=== PATIENT | female | born 1985 | race Two or more races ===

== ENCOUNTER 2024-12-09 17:04 | Inpatient (IN) | payer MEDICAID, OTHER ==
[~2024-12-09] VITALS: Ht 170.2 cm; Wt 104.7 kg
--- NOTE | 2024-12-09 17:41 | ED.PDOC ---
GI ASSESSMENT HPI Comments 39 y.o female presents to the ED for a chief complaint of abdominal pain associated with nausea and vomiting. Patient describes pain as sharp, constant, and rating a 7/10 on the pain scale. Patient reports pain first presented to his epigastric pain at 0100 today, migrated to the RLQ around 0300 and since has stayed there with no further radiation. Patient denies any diarrhea, fever, chills, bloody stool, hematuria, or dysuria. Chief Complaint: Abdominal Pain Time Seen by MD: 17:35 Primary Care Provider: unknown Reviewed Notes: Nurses Notes, Medications, Allergies Allergies: Coded Allergies: NO KNOWN ALLERGIES (Unverified , 12/09/24) Information Source: Patient Mode of Arrival: Wheelchair Timing: Hours Duration: Since onset Quality: Sharp Vomitus: Hard Stool: Normal Severity: Moderate Recent: Possible spoiled food Recent Hx of: None Pain Location: RLQ Modifying Factors: Nothing Associated sign and symptoms: Nausea, Vomiting, Abdominal Pain Past Medical History Surgical History: Cholecystectomy Surgical History (Other): gastric bypass and sinus ENVIRONMENTAL SERVICES TECHNICIAN History: No Pertinent ENVIRONMENTAL SERVICES TECHNICIAN History Family History Family History: Family hx of HTN Social History Smoker: Non-Smoker Alcohol: Denies ETOH Use Drugs: Denies Drug Use Lives In: Home Constitutional: denies: chills, diaphoresis, fatigue, fever, malaise, sweats, weakness, others EENTM: denies: blurred vision, double vision, ear bleeding, ear discharge, ear drainage, ear pain, ear ringing, eye pain, eye redness, hearing loss, mouth pain, mouth swelling, nasal discharge, nose bleeding, nose congestion, nose pain, photophobia, tearing, throat pain, throat swelling, voice changes, others Respiratory: denies: cough, hemoptysis, orthopnea, SOB at rest, shortness of breath, SOB with excertion, stridor, wheezing, others Cardiovascular: denies: chest pain, dizzy spells, diaphoresis, Dyspnea on exertion, edema, irregular heart beat, left arm pain, lightheadedness, palpitations, PND, syncope, others Gastrointestinal: reports: abdominal pain, nausea, vomiting; denies: abdomen distended, blood streaked bowels, constipated, diarrhea, dysphagia, difficulty swallowing, hematemesis, melena, poor appetite, poor fluid intake, rectal bleeding, rectal pain, others Genitourinary: denies: abnormal vagina bleeding, burning, dyspareunia, dysuria, flank pain, frequency, hematuria, incontinence, pain, , vagina discharge, urgency, others Neurological: denies: dizziness, fainting, headache, left sided numbness, left sided weakness, numbness, paresthesia, pre-existing deficit, right sided numbness, right sided weakness, seizure, speech problems, tingling, tremors, weakness, others Musculoskeletal: denies: back pain, gout, joint pain, joint swelling, muscle pain, muscle stiffness, neck pain, others Integumetry: denies: bruises, change in color, change in hair/nails, dryness, laceration, lesions, lumps, rash, wounds, others Allergic/Immunocompromised: denies: Difficulty Healing, Frequent Infections, Hives, Itching, others Hematologic/Lymphatic: denies: anemia, blood clots, easy bleeding, easy bruising, swollen glands, others Endocrine: denies: excessive hunger, excessive sweating, excessive thirst, excessive urination, flushing, intolerance to cold, intolerance to heat, unexplained weight gain, unexplained weight loss, others Psychiatric: denies: anxiety, bipolar disorder, depression, hopeless, panic disorder, schizophrenia, sleepless, suicidal, others All Other Systems: Reviewed and Negative Physical Exam General Appearance: Moderate Distress, Obese HEENT: Normal ENT Inspection, Pharynx Normal, TMs Normal Neck: Full Range of Motion, Non-Tender, Normal, Normal Inspection Respiratory: Chest Non-Tender, Lungs Clear, No Accessory Muscle Use, No Respiratory Distress, Normal Breath Sounds Cardiovascular: No Edema, No JVD, No Murmur, No Gallop, Normal Peripheral Pu lses, Regular Rate/Rhythm Breast Exam: Deferred Gastrointestinal: No Organomegaly, No Pulsatile Mass, Normal Bowel Sounds, RLQ, Soft, Tenderness Genitalia: Deferred Pelvic: Deferred Rectal: Deferred Extremities: No calf tenderness, Normal capillary refill, Normal inspection, Normal range of motion, Non-tender, No pedal edema Musculoskeletal : Apperance: Normal Neurologic: Alert, 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 Was a procedure done?: No GI differential Dx Differential Diagnosis: Appendicitis, Bowel Obstruction, Diverticular disease, Esophagitis, Gastroenteritis X-Ray, Labs, Meds, VS Vital Signs Date Time Temp Pulse Resp B/P (MAP) Pulse Ox O2 Delivery O2 Flow Rate FiO2 12/09/24 17:54 98 15 148/71 12/09/24 17:32 98.3 118 22 129/62 (84) 97 98.3 Lab Test 12/09/24 18:03 Range/Units White Blood Count 16.3 H 4.4-10.8 10^3/uL Red Blood Count 5.31 H 4.0-5.20 10^6/uL Hemoglobin 15.6 12.2-16.2 g/dL Hematocrit 46.4 H 36.0-46.0 % Mean Corpuscular Volume 87.5 80.0-100.0 fL Mean Corpuscular Hemoglobin 29.4 28.0-32.0 pg Mean Corpuscular Hemoglobin Concent 33.6 32.0-36.0 g/dL Red Cell Distribution Width 13.5 11.8-14.3 % Platelet Count 222 140-450 10^3/uL Mean Platelet Volume 7.4 6.9-10.8 fL Neutrophils (%) (Auto) 84.3 H 37.0-80.0 % Lymphocytes (%) (Auto) 6.0 L 10.0-50.0 % Monocytes (%) (Auto) 9.4 0.0-12.0 % Eosinophils (%) (Auto) 0.2 0.0-7.0 % Basophils (%) (Auto) 0.1 0.0-2.0 % Neutrophils # (Auto) 13.8 H 1.6-8.6 10 ^3/uL Lymphocytes # (Auto) 1.0 0.4-5.4 10 ^3/uL Monocytes # (Auto) 1.5 H 0-1.3 10 ^3/uL Eosinophils # (Auto) 0 0-0.8 10 ^3/uL Basophils # (Auto) 0 0-0.2 10 ^3/uL Nucleated Red Blood Cells 0.0 % Sodium Level 132 L 136-145 mmol/L Potassium Level 4.2 3.5-5.1 mmol/L Chloride Level 98 98-107 mmol/L Carbon Dioxide Level 26 20-31 mmol/L Anion Gap 8 5-15 Blood Urea Nitrogen < 5 L 9-23 mg/dL Creatinine 0.70 0.550-1.02 mg/dL Glomerular Filtration Rate Calc 111 >90 mL/min BUN/Creatinine Ratio 7.1 L 10.0-20.0 Serum Glucose 131 H 74-106 mg/dL Calcium Level 9.9 8.7-10.4 mg/dL Total Bilirubin 0.6 0.2-1.0 mg/dL Aspartate Amino Transferase (AST) 18 13-40 U/L Alanine Aminotransferase (ALT) 45 H 7-40 U/L Alkaline Phosphatase 89 46-116 U/L Total Protein 7.8 5.7-8.2 g/dL Albumin 4.9 H 3.2-4.8 g/dL Lipase 22 12-53 U/L Current Medications Medications (Trade) Dose Ordered Sig/Sara Route Start Time Stop Time Status Last Admin Ondansetron HCl (Zofran) 4 mg ONCE ONCE IV 12/09/24 17:45 12/09/24 17:46 DC 12/09/24 17:54 Morphine Sulfate 4 mg ONCE ONCE IV 12/09/24 17:45 12/09/24 17:46 DC 12/09/24 17:54 Sodium Chloride 500 ml @ 500 mls/hr Q1H ONCE IVB 12/09/24 17:45 12/09/24 18:44 DC 12/09/24 17:55 EXAM: CT Abdomen and Pelvis Without Intravenous Contrast. IMPRESSION: 1. Mucosal thickening in the appendix with surrounding inflammation. Appendix measures 0.9 cm in diameter. Appendicoliths measuring up to 7 mm. Findings are consistent with acute appendicitis. No rupture. 2. Hepatomegaly with fatty infiltration. The CBC does show an elevated white blood cell count of 16.3 The rest of the CBC is within normal limits The chemistry panel is within normal limits. At this time, the patient was given morphine 4 mg IV push for the pain The patient was given Zofran 4 mg IV push for the nausea Because of the findings, the patient was started on Zosyn for the appendicitis The patient was being admitted at this time We did speak with the patient about the results and the patient was being admitted Images Reviewed?: Images reviewed and evaluated by me Time of 1ST Reevaluation: 17:41 Reevaluation 1ST: Unchanged Patient Education/Counseling: Diagnosis, Treatment, Prognosis Family Education/Counseling: No Family Present Departure 1 Departure Time of Disposition: 19:38 Impression: Primary Impression: Intractable abdominal pain Additional Impression: Acute appendicitis Qualified Codes: K35.30 - Acute appendicitis with localized peritonitis, without perforation or gangrene Disposition: ADMITTED INPATIENT Admit to: Med Surg Condition: Fair Critical Care Note Critical Care Time?: No Stability Stability form required: Yes Unstable for transfer: ED Physician Assesment (Clinical assesment) I personally scribed for ABELINO LENTZ MD ([email or web address]) on 12/09/24 at 17:41. Electronically submitted by Sharon Regan ([facility]). I personally scribed for ABELINO LENTZ MD ([email or web address]) on 12/09/24 at 19:28. Electronically submitted by Sharon Regan ([facility]). ABELINO LENTZ MD Dec 09, 2024 17:41
[2024-12-09] MEDS: ONDANSETRON HCL 4 MG/2 ML VIAL IV ONE ×2 (17:54→22:15)
[2024-12-09] MEDS: MORPHINE SULFATE 4 MG/ML SYR/VIAL IV ONE (17:54)
[2024-12-09] MEDS: SODIUM CHLORIDE 0.9% 500 ML IVB ONE (17:55)
[2024-12-09 18:20] LABS: Basophils # (auto) 0 10 ^3/uL (0-0.2); Basophils % (auto) 0.1 % (0.0-2.0); Eosinophils # (auto) 0 10 ^3/uL (0-0.8); Eosinophils % (auto) 0.2 % (0.0-7.0); Hematocrit 46.4 % (36.0-46.0); Hemoglobin 15.6 g/dL (12.2-16.2); Mean Corpuscular Hemoglobin 29.4 pg (28.0-32.0); Mean Corpuscular Hgb Conc. 33.6 g/dL (32.0-36.0); Mean Corpuscular Volume 87.5 fL (80.0-100.0); Monocytes # (auto) 1.5 10 ^3/uL (0-1.3); Monocytes % (auto) 9.4 % (0.0-12.0); Neutrophils # (auto) 13.8 10 ^3/uL (1.6-8.6); Neutrophils % (auto) 84.3 % (37.0-80.0); Platelet Count (auto) 222 10^3/uL (140-450); Red Blood Cells 5.31 10^6/uL (4.0-5.20); Red Cell Distribution Width 13.5 % (11.8-14.3); White Blood Cell 16.3 10^3/uL (4.4-10.8)
[2024-12-09 18:39] LABS: Alkaline Phosphatase 89 U/L (46-116); Anion Gap 8 (5-15); Aspartate Aminotransferase 18 U/L (13-40); Bilirubin, Total 0.6 mg/dL (0.2-1.0); Calcium 9.9 mg/dL (8.7-10.4); Carbon Dioxide 26 mmol/L (20-31); Chloride 98 mmol/L (98-107); Potassium 4.2 mmol/L (3.5-5.1); Total Protein 7.8 g/dL (5.7-8.2)
[2024-12-09 18:45] LABS: Alanine Aminotransferase 45 U/L (7-40); Albumin 4.9 g/dL (3.2-4.8); BUN/Creatinine Ratio 7.1 (10.0-20.0); Blood Urea Nitrogen < 5 mg/dL (9-23); Glucose 131 mg/dL (74-106); Sodium 132 mmol/L (136-145)
[2024-12-09 19:05] LABS: Lipase 22 U/L (12-53)
--- NOTE | 2024-12-09 19:17 | DVH ---
EXAM: CT Abdomen and Pelvis Without Intravenous Contrast CLINICAL INDICATION: pain TECHNIQUE: Axial computed tomography images of the abdomen and pelvis without intravenous contrast. This CT exam was performed using one or more of the following dose reduction techniques: automated exposure control, adjustment of the mA and/or kV according to patient size, and/or use of iterative r econstruction technique. CONTRAST: RADIATION DOSE: CTDIvol = 22.28 mGy, DLP = 1282.17 mGy-cm COMPARISON: None FINDINGS: LUNG BASES: A few pulmonary nodule of the right lung base measuring up to 3 mm. No consolidation. ABDOMEN: LIVER: Hepatomegaly with fatty infiltration. GALLBLADDER AND BILE DUCTS: Gallbladder is surgically absent. No ductal dilation. PANCREAS: Unremarkable. No ductal dilation. SPLEEN: Unremarkable. No splenomegaly. ADRENALS: Unremarkable. No mass. KIDNEYS AND URETERS: Unremarkable. No obstructing stones. No hydronephrosis. STOMACH AND BOWEL: Status post colon resection and reanastomosis in the left upper abdominal quadra nt. No mucosal thickening. No bowel obstruction. PELVIS: APPENDIX: Mucosal thickening in the appendix with surrounding inflammation. Appendix measures 0.9 cm in diameter. BLADDER: Unremarkable. No stones. REPRODUCTIVE: Unremarkable as visualized. ABDOMEN and PELVIS: INTRAPERITONEAL SPACE: Unremarkable. No free air. No significant fluid collection. BONES/JOINTS: No acute fracture. No dislocation. SOFT TISSUES: Unremarkable. VASCULATURE: Unremarkable. No abdominal aortic aneurysm. LYMPH NODES: Unremarkable. No enlarged lymph nodes. OTHER FINDINGS: . . . IMPRESSION: 1. Mucosal thickening in the appendix with surrounding inflammation. Appendix measures 0.9 cm in di ameter. Appendicoliths measuring up to 7 mm. Findings are consistent with acute appendicitis. No rup ture. 2. Hepatomegaly with fatty infiltration. Findings were discussed with Dr. Tripathi by phone on 12/09/2024 at 7:13 p.m.
[2024-12-09] MEDS: PIPERACILLIN-TAZOB 3.375GM 100 ML IV ONE (20:05)
--- NOTE | 2024-12-09 20:16 | DVHINCON2 ---
Consultation - Surgical Date Seen: Dec 09, 2024 Referring Physician Referring Physician usha Reason for Consultation Appendicitis History of Present Illness History of Present Illness 39 y.o female presents to the ED for a chief complaint of abdominal pain assoc iated with nausea and vomiting. Patient describes pain as sharp, constant, and rating a 7/10 on the pain scale. Patient reports pain first presented to his epigastric pain at 0100 today, migrated to the [facility] around 0300 and since has stayed there with no further radiation. Patient denies any diarrhea, fever, chills, bloody stool, hematuria, or dysuria. Past Medical/Surgical History Past Medical/Surgical History lap maik, Lap. gastric bypass Family and Social History Family and Social History non smoker and drinker Allergies and medications Allergies: Coded Allergies: NO KNOWN ALLERGIES (Unverified , 12/09/24) Review of systems Review of Systems: HEENT:Normal, CVS:Normal, RESPIRATORY:Normal, GI:Normal, :Normal, MSK:Normal, NEURO:Normal Examination Vital signs Vital Signs Date Time Temp Pulse Resp B/P (MAP) Pulse Ox O2 Delivery O2 Flow Rate FiO2 12/09/24 17:54 98 15 148/71 12/09/24 17:32 98.3 97 98.3 Laboratory Labs Test 12/09/24 18:03 Range/Units White Blood Count 16.3 H 4.4-10.8 10^3/uL Red Blood Count 5.31 H 4.0-5.20 10^6/uL Hemoglobin 15.6 12.2-16.2 g/dL Hematocrit 46.4 H 36.0-46.0 % Mean Corpuscular Volume 87.5 80.0-100.0 fL Mean Corpuscular Hemoglobin 29.4 28.0-32.0 pg Mean Corpuscular Hemoglobin Concent 33.6 32.0-36.0 g/dL Red Cell Distribution Width 13.5 11.8-14.3 % Platelet Count 222 140-450 10^3/uL Mean Platelet Volume 7.4 6.9-10.8 fL Neutrophils (%) (Auto) 84.3 H 37.0-80.0 % Lymphocytes (%) (Auto) 6.0 L 10.0-50.0 % Monocytes (%) (Auto) 9.4 0.0-12.0 % Eosinophils (%) (Auto) 0.2 0.0-7.0 % Basophils (%) (Auto) 0.1 0.0-2.0 % Neutrophils # (Auto) 13.8 H 1.6-8.6 10 ^3/uL Lymphocytes # (Auto) 1.0 0.4-5.4 10 ^3/uL Monocytes # (Auto) 1.5 H 0-1.3 10 ^3/uL Eosinophils # (Auto) 0 0-0.8 10 ^3/uL Basophils # (Auto) 0 0-0.2 10 ^3/uL Nucleated Red Blood Cells 0.0 % Sodium Level 132 L 136-145 mmol/L Potassium Level 4.2 3.5-5.1 mmol/L Chloride Level 98 98-107 mmol/L Carbon Dioxide Level 26 20-31 mmol/L Anion Gap 8 5-15 Blood Urea Nitrogen < 5 L 9-23 mg/dL Creatinine 0.70 0.550-1.02 mg/dL Glomerular Filtration Rate Calc 111 >90 mL/min BUN/Creatinine Ratio 7.1 L 10.0-20.0 Serum Glucose 131 H 74-106 mg/dL Calcium Level 9.9 8.7-10.4 mg/dL Total Bilirubin 0.6 0.2-1.0 mg/dL Aspartate Amino Transferase (AST) 18 13-40 U/L Alanine Aminotransferase (ALT) 45 H 7-40 U/L Alkaline Phosphatase 89 46-116 U/L Total Protein 7.8 5.7-8.2 g/dL Albumin 4.9 H 3.2-4.8 g/dL Lipase 22 12-53 U/L EXAM: CT Abdomen and Pelvis Without Intravenous Contrast CLINICAL INDICATION: pain TECHNIQUE: Axial computed tomography images of the abdomen and pelvis without intravenous contrast. This CT exam was performed using one or more of the following dose reduction techniques: automated exposure control, adjustment of the mA and/or kV according to patient size, and/or use of iterative reconstruction technique. CONTRAST: RADIATION DOSE: CTDIvol = 22.28 mGy, DLP = 1282.17 mGy-cm COMPARISON: None FINDINGS: LUNG BASES: A few pulmonary nodule of the right lung base measuring up to 3 mm. No consolidation. ABDOMEN: LIVER: Hepatomegaly with fatty infiltration. GALLBLADDER AND BILE DUCTS: Gallbladder is surgically absent. No ductal dilation. PANCREAS: Unremarkable. No ductal dilation. SPLEEN: Unremarkable. No splenomegaly. ADRENALS: Unremarkable. No mass. KIDNEYS AND URETERS: Unremarkable. No obstructing stones. No hydronephrosis. STOMACH AND BOWEL: Status post colon resection and reanastomosis in the left upper abdominal quadrant. No mucosal thickening. No bowel obstruction. PELVIS: APPENDIX: Mucosal thickening in the appendix with surrounding inflammation. Appendix measures 0.9 cm in diameter. BLADDER: Unremarkable. No stones. REPRODUCTIVE: Unremarkable as visualized. ABDOMEN and PELVIS: INTRAPERITONEAL SPACE: Unremarkable. No free air. No significant fluid collection. BONES/JOINTS: No acute fracture. No dislocation. SOFT TISSUES: Unremarkable. VASCULATURE: Unremarkable. No abdominal aortic aneurysm. LYMPH NODES: Unremarkable. No enlarged lymph nodes. OTHER FINDINGS: . . . IMPRESSION: 1. Mucosal thickening in the appendix with surrounding inflammation. Appendix measures 0.9 cm in diameter. Appendicoliths measuring up to 7 mm. Findings are consistent with acute appendicitis. No rupture. 2. Hepatomegaly with fatty infiltration. Examination: GENERAL:Normal, HEENT:Normal, NECK:Normal, LUNGS:Normal, CVS:Normal, ABDOMEN:Abnormal (riight lower quadrant tendernes and guarding), MSK:Normal, SKIN:Normal, NEURO:Normal Problem List/Assessment/Plan Problems: (1) Acute appendicitis Assessment and Plan Acute appendicitis npo iv antibiotics ivf consent for lap appy possible open 12.09.24 Plan discussed with Plan discussed with: Patient, Spouse Visit Coding Surgery Date of Service if different f: Dec 09, 2024 Billing Provider: EMRE STARKS Jr., MD Surgery Visit Codes: 01025 - INP CONSULT <80 MIN EMRE STARKS Jr., MD Dec 09, 2024 20:16
[2024-12-09 20:37] VITALS: PULSE 65; RESP 13; O2SAT 97
[2024-12-09 20:54] LABS: Urine Bacteria FEW /hpf (None Seen); Urine Blood Negative /uL (Negative); Urine Clarity Clear (Clear); Urine Color Light-Yellow (Yellow); Urine Protein, UAD Negative (Negative); Urine Specific Gravity 1.008 (1.001-1.035); Urine Squamous Epithelial Cell FEW /hpf (<5); Urine Urobilinogen Normal (Negative); Urine WBC < 1 /HPF (0-5)
[2024-12-09] MEDS: MORPHINE SULFATE INJ 2 MG/ml SYRG IV ONE (22:15)
[2024-12-09] MEDS ORDERED: diphenhdrAMINE HCL 50 MG/1 ML VL IV PRN (23:15)
[2024-12-09] MEDS ORDERED: ONDANSETRON HCL 4 MG/2 ML VIAL IV PRN (23:15)
[2024-12-09] MEDS ORDERED: hydrALAZINE HCL 20 MG/ML VL IV PRN (23:15)
--- NOTE | 2024-12-09 23:23 | DVHHP2 ---
Admitting Diagnosis: Admission Date: 12/09/24 Abdominal pain History of Present Illness Patient is a 39-year-old female who presents to the ED for abdominal pain associated with vomiting and nausea. Patient states that pain first present as epigastric pain at 0100 today, but migrated to the right lower quadrant around 0300 and since has stayed there is no other radiation. Patient states pain is sharp, constant and getting a 7 out of 10 the pain scale. Patient denies any dysuria, hematuria, bloody stool, chills, fever, or diarrhea. While in the emergency department the patient was evaluated by the provider, As per provider: Labs, vital signs, and imagining monitored. Patient will be admitted for further evaluation and treatment. I discussed admission with the patient/family and is in agreement to treatment plan Allergies: Coded Allergies: NO KNOWN ALLERGIES (Unverified , 12/09/24) Home Meds Reported Medications Pregabalin (Lyrica) 50 Mg Cap, 50 MG PO QAM, CAP 12/10/24 Oxycodone W/ Acetaminophen (Apap/Oxycodone) 1 Tab Tab, 10-325 MG PO QID for pain 12/10/24 Cyclobenzaprine HCl (Cyclobenzaprine Hydrochlo) 10 Mg Tab, 1 TAB PO TID PRN for pain 12/10/24 Pregabalin (Pregabalin) 150 Mg Cap, 1 CAP PO HS 12/10/24 Current Medications Current Medications Medications (Trade) Dose Ordered Sig/Sara Route PRN Reason Start Time Stop Time Status Last Admin Sodium Chloride 1,000 ml @ 120 mls/hr Q8H20M IV 12/09/24 23:15 Hold 12/10/24 00:05 Ondansetron HCl (Zofran) 4 mg Q4HP PRN IV NAUSEA / VOMITING 12/09/24 23:15 Enoxaparin Sodium (Lovenox) 40 mg DAILY SC 12/10/24 10:00 12/10/24 10:01 Morphine Sulfate 4 mg Q3HP PRN IV SEVERE PAIN (7-10 PAIN SCALE) 12/09/24 23:15 12/10/24 20:38 Diphenhydramine HCl (Benadryl Injection) 25 mg Q6HP PRN IV FOR ITCHING 12/09/24 23:15 Pantoprazole Sodium (Protonix) 40 mg DAILY IV 12/10/24 10:00 12/10/24 10:00 Hydralazine HCl (Apresoline Injection) 10 mg Q6HP PRN IV SBP>150 12/09/24 23:15 Piperacillin Sod/ Tazobactam Sod 100 ml @ 100 mls/hr Q8HR IV 12/10/24 06:00 12/10/24 14:44 DC 12/10/24 05:22 Hydromorphone HCl (Dilaudid Injection) 0.5 mg Q10M PRN IV SEVERE PAIN (7-10 PAIN SCALE) 12/10/24 08:45 12/10/24 09:26 DC Hydrocortisone Sodium Succinate (Solu-CORTEF INJECTION) 100 mg Q8HR IV 12/10/24 16:00 12/10/24 17:09 Potassium Chloride/Dextrose/ Sod Cl 1,000 ml @ 120 mls/hr Q8H20M IV 12/10/24 08:45 12/10/24 10:01 Metronidazole 100 ml @ 100 mls/hr Q8HR IV 12/10/24 14:00 12/10/24 14:10 Piperacillin Sod/ Tazobactam Sod 100 ml @ 25 mls/hr Q8HR IV 12/10/24 14:45 12/10/24 20:19 DC 12/10/24 15:54 Oxycodone/ Acetaminophen (Percocet 5/ 325MG Tablet) 1 tab QID PRN PO MODERATE PAIN (4-6 PAIN SCALE) 12/10/24 20:00 12/10/24 16:09 Oxycodone HCl 5 mg QID PRN PO MODERATE PAIN (4-6 PAIN SCALE) 12/10/24 20:00 12/10/24 16:08 Cyclobenzaprine HCl (Flexeril Tablet) 10 mg TID PO 12/10/24 22:00 Piperacillin Sod/ Tazobactam Sod 100 ml @ 25 mls/hr Q6H IV 12/10/24 22:00 Review of Systems Constitutional: denies chills, denies fever, denies malaise Eyes: denies eye pain, denies vision change ENT: denies ear pain, denies headache, denies nasal congestion, denies painful swallowing, denies voice change Cardiovascular: denies chest pain, denies edema, denies orthopnea, denies palpi tations, denies paroxysmal nocturnal dyspnea Respiratory: denies cough, denies shortness of breath Gastrointestinal: denies constipation, denies diarrhea, denies nausea, denies vomiting Genitourinary: denies dysuria, denies frequent urination, denies urethral discharge Musculoskeletal: denies back pain, denies joint pain, denies muscle pain Skin: denies bruising, denies itching, denies rash Neurological: denies focal weakness, denies headache, denies sensory changes Psychiatric: denies anxiety, denies depression Endocrine: denies polydipsia, denies polyuria Hematologic/Lymphatic: denies easy bleeding, denies easy bruising, denies enlarged lymph nodes Allergic/Immunologic: denies allergy, denies hives Vital Signs Vital Signs Date Time Temp Pulse Resp B/P (MAP) Pulse Ox O2 Delivery O2 Flow Rate FiO2 12/10/24 20:38 111 20 114/68 12/10/24 13:00 97.2 93 97.2 12/10/24 09:40 Room Air* 0 21 Physical Exam General Appearance: alert, no distress HEENT: EOMI, PERRLA, normal external inspect of ears, no icterus, no nasal drainage Neck: no carotid bruit, no jugular venous distention (JVD), no lymphadenopathy Chest: normal thorax Respiratory: clear to auscultation, normal air movement Cardiovascular: regular rate and rhythm, no diastolic murmur, no jugular venous distention (JVD), no rub, no systolic murmur Abdominal: soft, no hepatomegaly, no mass, no splenomegaly, no tenderness Genitourinary: grossly normal external Musculoskeletal: no joint tenderness, no swelling Extremities: normal pulses, no calf tenderness, no clubbing, no cyanosis, no edema Skin: no bruising, no jaundice, no rash Neurological: alert, No focal deficit Results Labs Test 12/10/24 06:09 12/09/24 18:03 12/09/24 17:25 Range/Units White Blood Count 13.3 H 4.4-10.8 10^3/uL Red Blood Count 4.95 4.0-5.20 10^6/uL Hemoglobin 14.5 12.2-16.2 g/dL Hematocrit 43.8 36.0-46.0 % Mean Corpuscular Volume 88.5 80.0-100.0 fL Mean Corpuscular Hemoglobin 29.3 28.0-32.0 pg Mean Corpuscular Hemoglobin Concent 33.2 32.0-36.0 g/dL Red Cell Distribution Width 14.4 H 11.8-14.3 % Platelet Count 176 140-450 10^3/uL Mean Platelet Volume 7.5 6.9-10.8 fL Neutrophils (%) (Auto) 86.2 H 37.0-80.0 % Lymphocytes (%) (Auto) 5.7 L 10.0-50.0 % Monocytes (%) (Auto) 7.6 0.0-12.0 % Eosinophils (%) (Auto) 0.4 0.0-7.0 % Basophils (%) (Auto) 0.1 0.0-2.0 % Neutrophils # (Auto) 11.4 H 1.6-8.6 10 ^3/uL Lymphocytes # (Auto) 0.8 0.4-5.4 10 ^3/uL Monocytes # (Auto) 1.0 0-1.3 10 ^3/uL Eosinophils # (Auto) 0.1 0-0.8 10 ^3/uL Basophils # (Auto) 0 0-0.2 10 ^3/uL Nucleated Red Blood Cells 0.0 % Sodium Level 137 # 136-145 mmol/L Potassium Level 3.7 3.5-5.1 mmol/L Chloride Level 108 #H 98-107 mmol/L Carbon Dioxide Level 24 20-31 mmol/L Anion Gap 5 5-15 Blood Urea Nitrogen < 5 L 9-23 mg/dL Creatinine 0.68 0.550-1.02 mg/dL Glomerular Filtration Rate Calc 112 >90 mL/min BUN/Creatinine Ratio 7.4 L 10.0-20.0 Serum Glucose 154 H 74-106 mg/dL Hemoglobin A1c 5.8 H <5.7 % A1C Calcium Level 9.3 8.7-10.4 mg/dL Total Bilirubin 0.5 0.2-1.0 mg/dL Aspartate Amino Transferase (AST) 12 L 13-40 U/L Alanine Aminotransferase (ALT) 35 7-40 U/L Alkaline Phosphatase 79 46-116 U/L Total Protein 6.7 5.7-8.2 g/dL Albumin 4.2 3.2-4.8 g/dL Lipase 22 12-53 U/L Urine Color Light-yellow Yellow Urine Clarity Clear Clear Urine pH 6.0 5.0-9.0 Urine Specific [place] 1.008 1.001-1.035 Urine Protein Negative Negative Urine Ketones 2+ H Negative Urine Blood Negative Negative /uL Urine Nitrite Negative Negative Urine Bilirubin Negative Negative Urine Urobilinogen Normal Negative mg/dL Urine Leukocyte Esterase Negative Negative /uL Urine RBC 1 0 - 4 /hpf Urine Microscopic WBC < 1 0-5 /HPF Urine Squamous Epithelial Cells Few <5 /hpf Urine Bacteria Few H None Seen /hpf Urine Glucose Normal Normal mg/dL Urine Test Negative Negative Plan 1. Sepsis Monitor, IV fluids, IV antibiotics 2. Acute gangrenous appendicitis Monitor, surgical consult 3. Morbid obesity Monitor 4. Hyponatremia Monitor, daily labs Plan discussed with: Patient, Other KEANU FAJARDO NP Dec 09, 2024 23:23
[2024-12-10] VITALS (7 sets, daily range): BP systolic 93–114; BP diastolic 48–68; PULSE 100–113; RESP 14–20; TEMP 97.2–100.1; O2SAT 92–98
[2024-12-10] MEDS: SODIUM CHLORIDE 0.9% 1,000 ML IV SCH (00:05)
[2024-12-10] MEDS: MORPHINE SULFATE INJ 2 MG/ml SYRG IV PRN (02:20)
[2024-12-10] MEDS ORDERED: OXYC325T14 PO (03:31)
[2024-12-10] MEDS ORDERED: PREG150C63 PO (03:31)
[2024-12-10] MEDS ORDERED: CYCL-611 PO (03:31)
[2024-12-10] MEDS: PIPERACILLIN-TAZOB 3.375GM 100 ML IV SCH ×3 (05:22→22:00)
[2024-12-10 06:45] LABS: Basophils # (auto) 0 10 ^3/uL (0-0.2); Basophils % (auto) 0.1 % (0.0-2.0); Eosinophils # (auto) 0.1 10 ^3/uL (0-0.8); Eosinophils % (auto) 0.4 % (0.0-7.0); Hematocrit 43.8 % (36.0-46.0); Hemoglobin 14.5 g/dL (12.2-16.2); Lymphocytes # (auto) 0.8 10 ^3/uL (0.4-5.4); Lymphocytes % (auto) 5.7 % (10.0-50.0); Mean Corpuscular Hemoglobin 29.3 pg (28.0-32.0); Mean Corpuscular Hgb Conc. 33.2 g/dL (32.0-36.0); Mean Corpuscular Volume 88.5 fL (80.0-100.0); Monocytes % (auto) 7.6 % (0.0-12.0); Neutrophils # (auto) 11.4 10 ^3/uL (1.6-8.6); Neutrophils % (auto) 86.2 % (37.0-80.0); Platelet Count (auto) 176 10^3/uL (140-450); Red Blood Cells 4.95 10^6/uL (4.0-5.20); Red Cell Distribution Width 14.4 % (11.8-14.3); White Blood Cell 13.3 10^3/uL (4.4-10.8)
[2024-12-10 07:10] LABS: Alanine Aminotransferase 35 U/L (7-40); Albumin 4.2 g/dL (3.2-4.8); Alkaline Phosphatase 79 U/L (46-116); Anion Gap 5 (5-15); Bilirubin, Total 0.5 mg/dL (0.2-1.0); Calcium 9.3 mg/dL (8.7-10.4); Carbon Dioxide 24 mmol/L (20-31); Potassium 3.7 mmol/L (3.5-5.1); Sodium 137 mmol/L (136-145); Total Protein 6.7 g/dL (5.7-8.2)
[2024-12-10 07:13] LABS: Aspartate Aminotransferase 12 U/L (13-40); BUN/Creatinine Ratio 7.4 (10.0-20.0); Blood Urea Nitrogen < 5 mg/dL (9-23); Chloride 108 mmol/L (98-107); Glucose 154 mg/dL (74-106)
[2024-12-10] MEDS ORDERED: KETAMINE 50mg/ML 1ml syringe ONE (07:40)
[2024-12-10] MEDS ORDERED: fentaNYL CITRATE 100 MCG/2 ML VL ONE (07:41)
[2024-12-10] MEDS ORDERED: ONDANSETRON HCL 4 MG/2 ML VIAL ONE (07:41)
[2024-12-10] MEDS ORDERED: KETOROLAC TROMETH 30 MG/ML 1ML VIAL ONE (07:41)
[2024-12-10] MEDS ORDERED: PROPOFOL 10 MG/ML 20 ML IV ONE (07:41)
[2024-12-10] MEDS ORDERED: LIDOCAINE 2% (LOCAL ANESTH.) PF 5ml SDV ONE (07:41)
[2024-12-10] MEDS ORDERED: HYDROmorphone HCL 2 MG/ML VL/or syr ONE ×2 (07:41→08:20)
[2024-12-10] MEDS ORDERED: DexAMETHasone SOD PHOS 10MG/1ML VIAL INJ ONE (07:41)
[2024-12-10] MEDS ORDERED: GLYCOPYRROLATE 0.2 MG/ML 1ML VIAL ONE (07:41)
[2024-12-10] MEDS ORDERED: MIDAZOLAM HCL 2MG/2ML 2ml VIAL (1mg/ml) ONE (07:41)
[2024-12-10] MEDS ORDERED: ACETAMINOPHEN IV 100 ML IV ONE (08:00)
[2024-12-10] MEDS ORDERED: ePHEDrine SULFATE 50 MG/ML AMP ONE (08:09)
[2024-12-10] MEDS ORDERED: POVIDONE IODINE 10 % TOPICAL OINT 30GM TOP ONE (08:14)
[2024-12-10] MEDS: BUPIVACAINE HCL 0.25% P/F 10 ML VIAL ONE (08:15)
[2024-12-10] MEDS: LIDOCAINE W/ EPINEPHRINE 1% 20ML VIAL ONE (08:15)
[2024-12-10] MEDS ORDERED: SUGAMMADEX 200mg/2ml Vial (100MG/ML) IV ONE (08:16)
[2024-12-10] MEDS ORDERED: HYDROmorphone HCL 2 MG/ML VL/or syr IV PRN (08:45)
--- NOTE | 2024-12-10 09:11 | DVHOP ---
DATE OF SURGERY: 12/10/2024 PREOPERATIVE DIAGNOSIS: Appendicitis. POSTOPERATIVE DIAGNOSIS: Gangrenous appendicitis. SURGEON: Akhil Gonzalez MD SENIOR WEB DEVELOPER: Dr. Triplett. PROCEDURES: * Laparoscopy. * Laparoscopic appendectomy. DESCRIPTION OF PROCEDURE: Under general endotracheal anesthesia with the patient's skin prepped and draped, a supraumbilical incision was made and Veress needle inserted by the hanging drop technique in order to establish pneumoperitoneum to 15 mmHg pressure by insufflation with carbon dioxide. With the abdomen fully distended, the needle was removed and replaced with a 5 mm trocar port through which a 0-degree viewing laparoscope was inserted and under direct vision, an additional 5 mm port and a 10 mm port were inserted through the subxiphoid skin in the midline and the infraumbilical skin in the midline respectively. Instrumentation was introduced. Laparoscopy was performed revealing no obvious unexpected pathology. Appendix was affected by gangrenous appendicitis. It was adherent to the posterolateral peritoneum and surrounded by surrounding structures adherent in a form of a phlegmon. The phlegmon was divided bluntly and sharply and the appendix was then grasped with a Rydal forcep. Small amount of fluid emanated from the base of the appendix. Cultures were submitted. The appendix was mobilized fully to its confluence with the cecum. At its base with the confluence with the cecum, it was crossclamped and divided with an Endo JADE stapler equipped with vascular abdulaziz. The appendix and mesoappendix were then removed from the peritoneal cavity by placement in a specimen extraction bag which was withdrawn through the subumbilical 10 mm port site. The right lower quadrant was then profusely irrigated and irrigant was aspirated. Hemostasis was meticulously inspected and found to be complete. At the termination of procedure, there was no evidence of bleeding from either the appendicectomy site or from the port sites. Instrumentation was withdrawn. Pneumoperitoneum was evacuated. Wounds approximated. Skin approximated using metallic skin abdulaziz. The patient remained hemodynamically stable throughout the procedure, left the operating room following an accurate needle and sponge count. Her was thoroughly informed in the waiting room. MD SHEYLA Fleming/HÉCTOR TID: [id number] RECEIPT: [id number]
[2024-12-10] MEDS ORDERED: PREG50CA PO (09:38)
[2024-12-10] MEDS: PANTOPRAZOLE 40 MG/10 ML VIAL INJ IV SCH (10:00)
[2024-12-10] MEDS: ENOXAPARIN SOD 40 MG/0.4 ML SYRINGE SC SCH (10:01)
[2024-12-10] MEDS: D5W/SOD CHL 0.45%/KCL 20MEQ 1,000 ML IV SCH (10:01)
[2024-12-10] MEDS: metroNIDAZOLE 500MG/100ML 100 ML IV SCH (14:10)
[2024-12-10] MEDS: ONDANSETRON HCL 4 MG/2 ML VIAL IV ONE (14:30)
[2024-12-10] MEDS: oxyCODONE HCL 5MG TAB PO PRN (16:08)
[2024-12-10] MEDS: OXYCODONE W/ ACETAMINOPHEN 5/325MG TABLET PO PRN (16:09)
[2024-12-10] MEDS: HYDROCORTISONE SOD SUCC 100 MG/2ML INJ VIAL IV SCH (17:09)
--- NOTE | 2024-12-10 20:20 | MEDREC ---
[facility] Intervention Section I [facility] Intervention: Duplication of therapy (PLEASE CONSIDER D/C FLAGYL SINCE BOTH ZOSYN AND FLAGYL COVER FOR ANAEROBE ORGANISMS (DUPLICATE) ) MARK LEE PHARMACIST Dec 10, 2024 20:20
--- NOTE | 2024-12-10 20:52 | DVHPN2 ---
Progress Note - Dictate Date Seen: Dec 10, 2024 Medical Necessity Reason Pt with a Central, PICC or Fol: No vital signs Vital Sign Date Time Temp Pulse Resp B/P (MAP) Pulse Ox O2 Delivery O2 Flow Rate FiO2 12/10/24 20:38 111 20 114/68 12/10/24 13:00 97.2 93 97.2 12/10/24 09:40 Room Air* 0 21 Total Intake and Output 12/09/24 12/09/24 12/10/24 15:00 23:00 07:00 Intake Total 0 ml Balance 0 ml medications Current Medications Medications Dose Ordered Sig/Sara Route Start Time Stop Time Status Last Admin Dose Admin Sodium Chloride 1,000 ml @ 120 mls/hr Q8H20M IV 12/09/24 23:15 Hold 12/10/24 00:05 Ondansetron HCl 4 mg Q4HP PRN IV 12/09/24 23:15 Enoxaparin Sodium 40 mg DAILY SC 12/10/24 10:00 12/10/24 10:01 Morphine Sulfate 4 mg Q3HP PRN IV 12/09/24 23:15 12/10/24 20:38 Diphenhydramine HCl 25 mg Q6HP PRN IV 12/09/24 23:15 Pantoprazole Sodium 40 mg DAILY IV 12/10/24 10:00 12/10/24 10:00 Hydralazine HCl 10 mg Q6HP PRN IV 12/09/24 23:15 Hydrocortisone Sodium Succinate 100 mg Q8HR IV 12/10/24 16:00 12/10/24 17:09 Potassium Chloride/Dextrose/ Sod Cl 1,000 ml @ 120 mls/hr Q8H20M IV 12/10/24 08:45 12/10/24 10:01 Metronidazole 100 ml @ 100 mls/hr Q8HR IV 12/10/24 14:00 12/10/24 14:10 Oxycodone/ Acetaminophen 1 tab QID PRN PO 12/10/24 20:00 12/10/24 16:09 Oxycodone HCl 5 mg QID PRN PO 12/10/24 20:00 12/10/24 16:08 Cyclobenzaprine HCl 10 mg TID PO 12/10/24 22:00 Piperacillin Sod/ Tazobactam Sod 100 ml @ 25 mls/hr Q6H IV 12/10/24 22:00 objective General Appearance: alert, no distress HEENT: EOMI, PERRLA, normal external inspect of ears, no icterus, no nasal drainage Neck: no carotid bruit, no jugular venous distention (JVD), no lymphadenopathy Chest: normal thorax Respiratory: clear to auscultation, normal air movement Cardiovascular: regular rate and rhythm, no diastolic murmur, no jugular venous distention (JVD), no rub, no systolic murmur Abdominal: soft, no hepatomegaly, no mass, no splenomegaly, no tenderness Genitourinary: grossly normal external Musculoskeletal: no joint tenderness, no swelling Extremities: normal pulses, no calf tenderness, no clubbing, no cyanosis, no edema Skin: no bruising, no jaundice, no rash Neurological: alert, No focal deficit laboratory and microbiology Laboratory Tests 12/10/24 06:09 Test 12/10/24 06:09 Range/Units Serum Glucose 154 H 74-106 mg/dL Problem List 1. Sepsis Monitor, IV fluids, IV antibiotics 2. Acute gangrenous appendicitis Monitor, surgical consult 3. Morbid obesity Monitor 4. Hyponatremia Monitor, daily labs Assessment/Plan Subjective: Patient is awake and alert. Objective: Patient was admitted for acute gangrenous appendicitis. Patient status post appendectomy by Doctor Riggins. Patient was started on IV fluids and IV antibiotics. Plan: Continue current treatment. Diet was advanced to clear liquids. Continue pain medication as needed. DC planning once cleared by general surgeon. Plan discussed with: Patient, Other KEANU FAJARDO NP Dec 10, 2024 20:52
[2024-12-10] MEDS: PREGABALIN CAPSULE 75 MG CAP PO ONE (21:42)
[2024-12-10] MEDS: CYCLOBENZAPRINE HCL 10 MG TAB PO SCH (21:42)
[2024-12-11 01:00] VITALS: BP 114/58; PULSE 105; RESP 20; TEMP 98.1; O2SAT 95
[2024-12-11 05:00] VITALS: BP 107/58; PULSE 91; RESP 18; TEMP 97.6; O2SAT 93
--- NOTE | 2024-12-11 08:29 | DVHPN2 ---
Progress Note - Dictate Medical Necessity Reason Pt with a Central, PICC or Fol: No vital signs Vital Sign Date Time Temp Pulse Resp B/P (MAP) Pulse Ox O2 Delivery O2 Flow Rate FiO2 12/11/24 06:22 87 18 104/56 12/11/24 05:00 97.6 93 97.6 12/10/24 20:00 Room Air* 0 21 Total Intake and Output 12/10/24 12/10/24 12/11/24 15:00 23:00 07:00 Intake Total 220 ml 400 ml 800 ml Balance 220 ml 400 ml 800 ml medications Current Medications Medications Dose Ordered Sig/Sara Route Start Time Stop Time Status Last Admin Dose Admin Sodium Chloride 1,000 ml @ 120 mls/hr Q8H20M IV 12/09/24 23:15 Hold 12/10/24 00:05 120 MLS/HR Ondansetron HCl 4 mg Q4HP PRN IV 12/09/24 23:15 Enoxaparin Sodium 40 mg DAILY SC 12/10/24 10:00 12/10/24 10:01 40 MG Morphine Sulfate 4 mg Q3HP PRN IV 12/09/24 23:15 12/11/24 05:52 4 MG Diphenhydramine HCl 25 mg Q6HP PRN IV 12/09/24 23:15 Pantoprazole Sodium 40 mg DAILY IV 12/10/24 10:00 12/10/24 10:00 40 MG Hydralazine HCl 10 mg Q6HP PRN IV 12/09/24 23:15 Hydrocortisone Sodium Succinate 100 mg Q8HR IV 12/10/24 16:00 12/11/24 05:27 100 MG Potassium Chloride/Dextrose/ Sod Cl 1,000 ml @ 120 mls/hr Q8H20M IV 12/10/24 08:45 12/10/24 10:01 120 MLS/HR Metronidazole 100 ml @ 100 mls/hr Q8HR IV 12/10/24 14:00 12/11/24 05:26 100 MLS/HR Oxycodone/ Acetaminophen 1 tab QID PRN PO 12/10/24 20:00 12/10/24 23:54 1 TAB Oxycodone HCl 5 mg QID PRN PO 12/10/24 20:00 12/10/24 23:54 5 MG Cyclobenzaprine HCl 10 mg TID PO 12/10/24 22:00 12/11/24 05:27 10 MG Piperacillin Sod/ Tazobactam Sod 100 ml @ 25 mls/hr Q6H IV 12/10/24 22:00 12/11/24 06:26 25 MLS/HR objective General Appearance: alert, no distress HEENT: EOMI, PERRLA, normal external inspect of ears, no icterus, no nasal drainage Neck: no carotid bruit, no jugular venous distention (JVD), no lymphadenopathy Chest: normal thorax Respiratory: clear to auscultation, normal air movement Cardiovascular: regular rate and rhythm, no diastolic murmur, no jugular venous distention (JVD), no rub, no systolic murmur Abdominal: soft, no hepatomegaly, no mass, no splenomegaly, no tenderness Genitourinary: grossly normal external Musculoskeletal: no joint tenderness, no swelling Extremities: normal pulses, no calf tenderness, no clubbing, no cyanosis, no edema Skin: no bruising, no jaundice, no rash Neurological: alert, No focal deficit laboratory and microbiology Laboratory Tests 12/10/24 06:09 Test 12/10/24 06:09 Range/Units Serum Glucose 154 H 74-106 mg/dL Problem List 1. Sepsis Monitor, IV fluids, IV antibiotics 2. Acute gangrenous appendicitis Monitor, surgical consult 3. Morbid obesity Monitor 4. Hyponatremia Monitor, daily labs Assessment/Plan Subjective: Patient is awake and alert. Objective: Patient was admitted for acute gangrenous appendicitis. Patient status post appendectomy by Doctor Riggins. Patient was started on IV fluids and IV antibiotics. Plan: Continue current treatment. Diet was advanced to clear liquids. Continue pain medication as needed. DC planning once cleared by general surgeon. KEANU FAJARDO NP Dec 11, 2024 08:29
[2024-12-11 09:00] VITALS: BP 98/53; PULSE 90; RESP 18; TEMP 97.9; O2SAT 91
[2024-12-11 09:05] LABS: Basophils # (auto) 0 10 ^3/uL (0-0.2); Basophils % (auto) 0.1 % (0.0-2.0); Eosinophils # (auto) 0 10 ^3/uL (0-0.8); Eosinophils % (auto) 0.2 % (0.0-7.0); Hematocrit 36.4 % (36.0-46.0); Hemoglobin 12.2 g/dL (12.2-16.2); Lymphocytes # (auto) 0.4 10 ^3/uL (0.4-5.4); Lymphocytes % (auto) 4.8 % (10.0-50.0); Mean Corpuscular Hemoglobin 29.6 pg (28.0-32.0); Mean Corpuscular Hgb Conc. 33.5 g/dL (32.0-36.0); Mean Corpuscular Volume 88.4 fL (80.0-100.0); Monocytes # (auto) 0.5 10 ^3/uL (0-1.3); Monocytes % (auto) 5.8 % (0.0-12.0); Neutrophils # (auto) 8.2 10 ^3/uL (1.6-8.6); Neutrophils % (auto) 89.1 % (37.0-80.0); Platelet Count (auto) 141 10^3/uL (140-450); Red Blood Cells 4.11 10^6/uL (4.0-5.20); Red Cell Distribution Width 14.3 % (11.8-14.3); White Blood Cell 9.2 10^3/uL (4.4-10.8)
[2024-12-11 09:10] LABS: Anion Gap 3 (5-15); Carbon Dioxide 27 mmol/L (20-31); Chloride 105 mmol/L (98-107); Potassium 4.6 mmol/L (3.5-5.1)
[2024-12-11 09:11] LABS: Calcium 8.7 mg/dL (8.7-10.4)
[2024-12-11 09:16] LABS: BUN/Creatinine Ratio 8.9 (10.0-20.0)
[2024-12-11] MEDS: PREGABALIN 25 MG CAP PO ONE (09:19)
[2024-12-11 09:21] LABS: Blood Urea Nitrogen 5 mg/dL (9-23); Glucose 142 mg/dL (74-106); Sodium 135 mmol/L (136-145)
[2024-12-11] MEDS ORDERED: ALPR0.5T8 PO (10:41)
[2024-12-11] MEDS ORDERED: BUPR-60 PO (10:41)
[2024-12-11] MEDS ORDERED: ELET40TA8 PO (10:41)
--- NOTE | 2024-12-11 12:39 | DVHPN2 ---
Subjective Date Seen: Dec 11, 2024 Post op day Post op day: 1 Patient reports: No new complaints, Feels better Nursing reports: No new complaints General: Normal HNT: Normal Cardiovascular: Normal Respiratory: Normal Gastrointestinal: Normal Genitourinary: Normal Musculoskeletal: Normal Neurological: Normal Objective Vitals Vital Sign Date Time Temp Pulse Resp B/P (MAP) Pulse Ox O2 Delivery O2 Flow Rate FiO2 12/11/24 09:00 97.9 90 18 98/53 (68) 91 97.9 12/11/24 07:30 Room Air* 0 21 Total Intake and Output 12/10/24 12/10/24 12/11/24 14:59 22:59 06:59 Intake Total 220 ml 400 ml 800 ml Balance 220 ml 400 ml 800 ml Medications Current Medications Medications Dose Ordered Sig/Sara Route Start Time Stop Time Status Last Admin Dose Admin Sodium Chloride 1,000 ml @ 120 mls/hr Q8H20M IV 12/09/24 23:15 Hold 12/10/24 00:05 120 MLS/HR Ondansetron HCl 4 mg Q4HP PRN IV 12/09/24 23:15 Enoxaparin Sodium 40 mg DAILY SC 12/10/24 10:00 12/11/24 09:18 40 MG Morphine Sulfate 4 mg Q3HP PRN IV 12/09/24 23:15 12/11/24 05:52 4 MG Diphenhydramine HCl 25 mg Q6HP PRN IV 12/09/24 23:15 Pantoprazole Sodium 40 mg DAILY IV 12/10/24 10:00 12/11/24 09:18 40 MG Hydralazine HCl 10 mg Q6HP PRN IV 12/09/24 23:15 Hydrocortisone Sodium Succinate 100 mg Q8HR IV 12/10/24 16:00 12/11/24 05:27 100 MG Potassium Chloride/Dextrose/ Sod Cl 1,000 ml @ 120 mls/hr Q8H20M IV 12/10/24 08:45 12/11/24 09:19 120 MLS/HR Oxycodone/ Acetaminophen 1 tab QID PRN PO 12/10/24 20:00 12/11/24 09:41 1 TAB Cyclobenzaprine HCl 10 mg TID PO 12/10/24 22:00 12/11/24 05:27 10 MG Piperacillin Sod/ Tazobactam Sod 100 ml @ 25 mls/hr Q6H IV 12/10/24 22:00 12/11/24 09:33 25 MLS/HR Bupropion HCl 150 mg BID PO 12/11/24 22:00 Patient Own Medication 1 tab DAILYPRN PRN PO 12/11/24 10:45 Pregabalin 150 mg HS PO 12/11/24 22:00 Pregabalin 50 mg QAM PO 12/12/24 07:00 General: Normal, Well developed, Well nourished, Normal Appearance Head/Eyes: Normal ENT: Normal Neck: Normal, Supple, No JVD Lungs: Normal, Normal inspection Cardiovascular: Normal, Regular rate and rhythm Abdominal: Normal, Soft, Normal inspection Extremities: Normal Skin: Normal, Normal inspection, Normal color Labs and Microbiology Laboratory Tests 12/11/24 08:50 Test 12/11/24 08:50 Range/Units Serum Glucose 142 H 74-106 mg/dL Ass/Plan Labs and/or images reviewed: Labs reviewed by me, Image(s) reviewed by me Problem List 1. Sepsis Monitor, IV fluids, IV antibiotics 2. Acute gangrenous appendicitis Monitor, surgical consult 3. Morbid obesity Monitor 4. Hyponatremia Monitor, daily labs Assessment/Plan s/p laparoscopic appendectomy POD#1 labs, notes reviewed, patient examined abdomen soft, non distended, non tender, no new complaints feeling well denies nausea , vomiting, passing gas, no BM Plan: advance diet as tolerated per surgery ok to discharge patient to follow up in surgery clinic in 2 weeks send HOME with antibiotics Prognosis: Excellent Plan discussed with patient, Dr. Gonzalez Visit Coding Surgery Date of Service if different f: Dec 11, 2024 Billing Provider: BAIRON GONZALEZ MD Surgery Visit Codes: [id number] INP/OBS CARE(HIGH) NATALIE POOL [place] Dec 11, 2024 12:39
[2024-12-11 13:00] VITALS: BP 100/56; PULSE 95; RESP 18; TEMP 98; O2SAT 98
[2024-12-11] MEDS ORDERED: METR-344 PO (15:13)
[2024-12-11] MEDS ORDERED: LEVO500T91 PO (15:13)
[2024-12-11 17:00] VITALS: BP 107/64; PULSE 90; RESP 16; TEMP 98.2; O2SAT 99
[2024-12-11] MEDS ORDERED: PERCOT PO (17:18)
[2024-12-11] MEDS ORDERED: NALO4SPR2 (17:18)
[2024-12-11 18:13] VITALS: TEMP 36.8
--- NOTE | 2024-12-11 21:06 | DVHDS2 ---
Discharge Summary Date of Admission Dec 09, 2024 at 23:15 Date of Discharge: Dec 11, 2024 Labs/Diagnostic Data: Laboratory Results Test 12/11/24 08:50 12/10/24 06:09 12/09/24 18:03 12/09/24 17:25 White Blood Count 9.2 10^3/uL (4.4-10.8) Red Blood Count 4.11 10^6/uL (4.0-5.20) Hemoglobin 12.2 g/dL (12.2-16.2) Hematocrit 36.4 % (36.0-46.0) Mean Corpuscular Volume 88.4 fL (80.0-100.0) Mean Corpuscular Hemoglobin 29.6 pg (28.0-32.0) Mean Corpuscular Hemoglobin Concent 33.5 g/dL (32.0-36.0) Red Cell Distribution Width 14.3 % (11.8-14.3) Platelet Count 141 10^3/uL (140-450) Mean Platelet Volume 7.6 fL (6.9-10.8) Neutrophils (%) (Auto) 89.1 % (37.0-80.0) Lymphocytes (%) (Auto) 4.8 % (10.0-50.0) Monocytes (%) (Auto) 5.8 % (0.0-12.0) Eosinophils (%) (Auto) 0.2 % (0.0-7.0) Basophils (%) (Auto) 0.1 % (0.0-2.0) Neutrophils # (Auto) 8.2 10 ^3/uL (1.6-8.6) Lymphocytes # (Auto) 0.4 10 ^3/uL (0.4-5.4) Monocytes # (Auto) 0.5 10 ^3/uL (0-1.3) Eosinophils # (Auto) 0 10 ^3/uL (0-0.8) Basophils # (Auto) 0 10 ^3/uL (0-0.2) Nucleated Red Blood Cells 0.0 % Sodium Level 135 mmol/L (136-145) Potassium Level 4.6 mmol/L (3.5-5.1) Chloride Level 105 mmol/L (98-107) Carbon Dioxide Level 27 mmol/L (20-31) Anion Gap 3 (5-15) Blood Urea Nitrogen 5 mg/dL (9-23) Creatinine 0.56 mg/dL (0.550-1.02) Glomerular Filtration Rate Calc 118 mL/min (>90) BUN/Creatinine Ratio 8.9 (10.0-20.0) Serum Glucose 142 mg/dL (74-106) Calcium Level 8.7 mg/dL (8.7-10.4) Hemoglobin A1c 5.8 % A1C (<5.7) Total Bilirubin 0.5 mg/dL (0.2-1.0) Aspartate Amino Transferase (AST) 12 U/L (13-40) Alanine Aminotransferase (ALT) 35 U/L (7-40) Alkaline Phosphatase 79 U/L (46-116) Total Protein 6.7 g/dL (5.7-8.2) Albumin 4.2 g/dL (3.2-4.8) Lipase 22 U/L (12-53) Urine Color Light-yellow (Yellow) Urine Clarity Clear (Clear) Urine pH 6.0 (5.0-9.0) Urine Specific Oneco 1.008 (1.001-1.035) Urine Protein Negative (Negative) Urine Ketones 2+ (Negative) Urine Blood Negative /uL (Negative) Urine Nitrite Negative (Negative) Urine Bilirubin Negative (Negative) Urine Urobilinogen Normal mg/dL (Negative) Urine Leukocyte Esterase Negative /uL (Negative) Urine RBC 1 /hpf (0 - 4) Urine Microscopic WBC < 1 /HPF (0-5) Urine Squamous Epithelial Cells Few /hpf (<5) Urine Bacteria Few /hpf (None Seen) Urine Glucose Normal mg/dL (Normal) Urine Test Negative (Negative) Other Laboratory Tests 12/11/24 08:50 Brief Hx & Hospital Course: Patient is a 39-year-old female who presents to the ED for abdominal pain associated with vomiting and nausea. Patient states that pain first present as epigastric pain at 0100 today, but migrated to the right lower quadrant around 0300 and since has stayed there is no other radiation. Patient states pain is sharp, constant and getting a 7 out of 10 the pain scale. Patient denies any dysuria, hematuria, bloody stool, chills, fever, or diarrhea. While in the emergency department the patient was evaluated by the provider, As per provider: Labs, vital signs, and imagining monitored. Patient was admitted on 12/09/2024 for abdominal pain related to gangrenous appendicitis. Patient is status post appendectomy by Dr. Gonzalez. Labs from surgery were stable. Patient was able to pass gas. Patient states she is chronically constipated. Patient's home medications were resumed. Patient's diet was slowly advanced. She was cleared for discharge by general surgery. She will be discharged home with oral antibiotics. She was instructed to follow-up with her PCP in 1 week. The patient received proper medical treatment and medications. Vital signs, Imaging and Laboratory Work was monitored daily. All consults recommendations were followed as provided. There were no complaints or new complaints upon discharge, all questions and concerns were answered. Patient was advised to return to the ER or call 911 if any headaches, dizziness, shortness of breath, chest pain, bleeding, fevers, or worsening of medical condition. Patient/Family was counseled about treatment plan, medications, possible side effects, patient verbalized understanding. All questions were answered to the best of my ability. The patient symptoms improved and they are okay to be DC. Condition at Discharge: Stable Final Diagnosis/Problems List Acute appendicitis Sepsis Morbid obesity Hyponatremia Discharge Disposition: Home Discharge Instruct/Medications Diet: Cardiac 2g Na,low cholest Activity: No Restrictions, As Tolerated Follow Up/Referral: pcp [address] Gonzalez 7-10 days Discharge Statement: "Patient was advised to return to the ER or call 911 if any headaches, dizziness, shortness of breath, chest pain, abdominal pain, bleeding, fevers, or worsening of medical condition. Patient was counseled about treatment plan, medications, possible side effects, patientverbalized understanding. All questions were answered to the best of my ability. This discharge took greater then 30 minutes in planning, reviewing documentation, counseling the patient, and discussing with other team members." ASSESSMENT ASSESSMENT Assessment Acute appendicitis KEANU FAJARDO NP Dec 11, 2024 21:06
[2024-12-11] MEDS ORDERED: buPROPion HCL 75 MG TAB PO SCH (22:00)
[2024-12-11] MEDS ORDERED: PREGABALIN CAPSULE 75 MG CAP PO SCH (22:00)
[2024-12-12] MEDS ORDERED: PREGABALIN 25 MG CAP PO SCH (07:00)
[2024-12-12] MEDS ORDERED: OXYC-963 PO (12:28)
== END 2024-12-11 18:45 | disposition home or self-care (01) | DRG 710 ==
LOC: ER 17:04 → OVERFLOW 23:15 → EAST 12-10 01:54
PROVIDERS: ADMIT Nurse Practitioner; ATTEND Nurse Practitioner
PROC: 0DTJ4ZZ Resection of Appendix, Percutaneous Endoscopic Approach (ICD-10-PCS; principal; 2024-12-10 07:44)
DX: A41.9 Sepsis, unspecified organism (principal); E87.1 Hypo-osmolality and hyponatremia; K35.891 Other acute appendicitis without perforation, with gangrene; E66.01 Morbid (severe) obesity due to excess calories; K59.09 Other constipation; Z68.38 Body mass index [BMI] 38.0-38.9, adult; Z79.899 Other long term (current) drug therapy; Z90.49 Acquired absence of other specified parts of digestive tract; Z82.49 Family history of ischemic heart disease and other diseases of the circulatory system
CPT/HCPCS: 36415; 74176; 80048; 80053; 81001; 81025; 83036; 83690; 85025; 87070; 87075; 87076; 87077; 87186; 87205; 96365; 96375; G0378; J0131; J1100; J1885; J2003; J2250; J2405; J2470; J2543; J2704; J3490